=== PATIENT | female | born 1985 | race Caucasian/White ===

== ENCOUNTER 2017-10-29 18:30 | Emergency (ER) | payer BC ==
[2017-10-29 18:50] VITALS: BP 101/69
[2017-10-29] MEDS ORDERED: Sodium Chloride 0.9% 1,000 ML IV ONE (18:58)
[2017-10-29] MEDS ORDERED: Ondansetron 4 MG/2 ML SDV IVPUSH ONE ×2 (18:58→20:04)
--- NOTE | 2017-10-29 19:16 | EDM.PDOC ---
ED HPI GENERAL MEDICAL PROBLEM - General Chief Complaint: Gastrointestinal Problem Stated Complaint: vomiting Time Seen by Provider: 10/29/17 18:54 Source of Information: Reports: Patient, Family () History Limitations: Reports: No Limitations - History of Present Illness INITIAL COMMENTS - FREE TEXT/NARRATIVE: The patient states that she developed nausea and repeated emesis around 21:30 last night. She denies associated fever, constipation, diarrhea, or dysuria. She reports decreased urine output today. She reports feeling lightheaded and has an associated headache and myalgias. She states that she tried some Pepto- Bismol this morning, but vomited it up. She has been able to keep a small amount of Powerade down. She states that both of her sons had similar symptoms - her one son developed it 2 nights ago, her other son last night. Both resolved by the following morning, however, the patient's symptoms have persisted. 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 The patient denies eating any spoiled food within the last few days. No recent antibiotics. No recent travel. No prior similar symptoms. The patient's PCP is Dr. Valdivia. Abdomen Pain Score (Numeric/FACES): 6 - Related Data Allergies Allergy/AdvReac Type Severity Reaction Status Date / Time sumatriptan [From Imitrex] AdvReac Headache Verified 12/11/15 08:08 sumatriptan succinate AdvReac Headache Verified 12/11/15 08:08 [From Imitrex] Home Meds: Home Meds DULoxetine [Cymbalta] 60 mg PO BEDTIME 10/29/17 [History] Doxepin [SINEquan] 10 mg PO DAILY 10/29/17 [History] Ondansetron [Zofran ODT] 1 tab PO Q8H PRN #10 tab.dis 10/29/17 [Rx] Past Medical History [employer] History: Reports: Spontaneous Neurological History: Reports: Headaches, Chronic Psychiatric History: Reports: Anxiety, Depression, Other (See Below) (Irritable bowel syndrome/fibromyalgia/chronic fatigue) - Past Surgical History HEENT Surgical History: Reports: Oral Surgery (Free[place] teeth extraction), Tonsillectomy Female Surgical History: Reports: Other (See Below) (Exploratory laparoscopy) Endocrine Surgical History: Reports: None Musculoskeletal Surgical History: Reports: None Dermatological Surgical History: Reports: None Social & Family History - Family History Family Medical History: Noncontributory - Tobacco Use Smoking Status *Q: Never Smoker Second Hand Smoke Exposure: No - Caffeine Use Caffeine Use: Reports: Soda - Alcohol Use Alcohol Use History: Yes Days Per Week of Alcohol Use: 0 Alcohol Use Frequency: Rarely - Recreational Drug Use Recreational Drug Use: No - Living Situation & Occupation Living situation: Reports: , with Spouse, with Family (2 sons) 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 ED EXAM, GI/ABD - Physical Exam Exam: See Below Exam Limited By: No Limitations General Appearance: Alert, WD/WN, No Apparent Distress Eyes: Bilateral: Normal Appearance, EOMI Ears: Normal External Exam, Hearing Grossly Normal Nose: Normal Inspection, No Blood Throat/Mouth: Normal Inspection, Normal Lips, Normal Voice, No Airway Compromise Head: Atraumatic, Normocephalic Neck: Normal Inspection, Full Range of Motion Respiratory/Chest: No Respiratory Distress, Lungs Clear, Normal Breath Sounds, No Accessory Muscle Use Cardiovascular: Normal Peripheral Pulses, Regular Rate, Rhythm, No Edema, No Gallop, No JVD, No Murmur, No Rub GI/Abdominal Exam: Normal Bowel Sounds, Soft, No Organomegaly, No Distention, No Abnormal Bruit, No Mass, Tender (Mild, primarily to the rectus abdominous musculature) (Female) Exam: Deferred Rectal (Female) Exam: Deferred Back Exam: Normal Inspection, Full Range of Motion, Paraspinal Tenderness. No: CVA Tenderness (L), CVA Tenderness (R) Extremities: Normal Inspection, Normal Range of Motion, No Pedal Edema, Normal Capillary Refill Neurological: Alert, Oriented, Normal Cognition, No Motor/Sensory Deficits Psychiatric: Normal Affect Skin Exam: Warm, Dry, Intact, Normal Color, No Rash Course - Vital Signs Last Recorded V/S: Last Vital Signs Temp 37.2 C 10/29/17 18:49 Pulse 97 10/29/17 18:49 Resp 20 10/29/17 18:49 BP 101/69 10/29/17 18:49 Pulse Ox 98 10/29/17 18:49 Orthostatic Blood Pressure [ 104/68 Standing] Orthostatic Blood Pressure [ 103/77 Sitting] Orthostatic Blood Pressure [ 103/78 Supine] - Orders/Labs/Meds Orders: Active Orders 24 hr Category Date Time Status Orthostatic Vital Signs [RC] STAT Care 10/29/17 18:57 Active Orthostatic Vital Signs [RC] STAT Care 10/29/17 19:34 Active HCG QUALITATIVE,URINE [URCHEM] Stat Lab 10/29/17 19:09 Ordered UA W/MICROSCOPIC [URIN] Stat Lab 10/29/17 19:20 Ordered Labs: Laboratory Tests 10/29/17 10/29/17 10/29/17 Range/Units 19:09 19:10 19:10 WBC 7.53 (3.98-10.04) K/mm3 RBC 4.81 (3.98-5.22) M/mm3 Hgb 14.3 (11.2-15.7) gm/L Hct 42.5 (34.1-44.9) % MCV 88.4 (79.4-94.8) fl MCH 29.7 (25.6-32.2) pg MCHC 33.6 (32.2-35.5) g/dl RDW Std Deviation 44.4 (36.4-46.3) fL Plt Count 185 (182-369) K/mm3 MPV 10.4 (9.4-12.3) fl Neutrophils % (Manual) 93 H (40-60) % Band Neutrophils % 2 (0-10) % Lymphocytes % (Manual) 4 L (20-40) % Atypical Lymphs % 0 % Monocytes % (Manual) 1 L (2-10) % Eosinophils % (Manual) 0 L (0.7-5.8) % Basophils % (Manual) 0 L (0.1-1.2) Platelet Estimate Adequate Plt Morphology Comment Normal RBC Morph Comment Normal Sodium 136 (136-145) mEq/L Potassium 3.3 L (3.5-5.1) mEq/L Chloride 103 (98-107) mEq/L Carbon Dioxide 22 (21-32) mEq/L Anion Gap 14.3 (5-15) BUN 11 (7-18) mg/dL Creatinine 0.7 (0.55-1.02) mg/dL Est Cr Clr Drug Dosing 135.61 mL/min Estimated GFR (MDRD) > 60 (>60) mL/min BUN/Creatinine Ratio 15.7 (14-18) Glucose 107 H (74-106) mg/dL Calcium 9.0 (8.5-10.1) mg/dL Magnesium 1.6 L (1.8-2.4) mg/dl Total Bilirubin 0.6 (0.2-1.0) mg/dL AST 14 L (15-37) U/L ALT 22 (14-59) U/L Alkaline Phosphatase 49 (46-116) U/L Total Protein 6.8 (6.4-8.2) g/dl Albumin 3.8 (3.4-5.0) g/dl Globulin 3.0 gm/dL Albumin/Globulin Ratio 1.3 (1-2) Urine Color (Yellow) Urine Appearance (Clear) Urine pH (5.0-8.0) Ur Specific [place] (1.005-1.030) Urine Protein (Negative) Urine Glucose (UA) (Negative) Urine Ketones (Negative) Urine Occult Blood (Negative) Urine Nitrite (Negative) Urine Bilirubin (Negative) Urine Urobilinogen (0.2-1.0) Ur Leukocyte Esterase (Negative) Urine RBC (0-5) /hpf Urine WBC (0-5) /hpf Ur Epithelial Cells (0-5) /hpf Urine Bacteria (FEW) /hpf Urine Mucus (FEW) /hpf Urine HCG, Qual Negative (NEGATIVE) 10/29/17 Range/Units 19:20 WBC (3.98-10.04) K/mm3 RBC (3.98-5.22) M/mm3 Hgb (11.2-15.7) gm/L Hct (34.1-44.9) % MCV (79.4-94.8) fl MCH (25.6-32.2) pg MCHC (32.2-35.5) g/dl RDW Std Deviation (36.4-46.3) fL Plt Count (182-369) K/mm3 MPV (9.4-12.3) fl Neutrophils % (Manual) (40-60) % Band Neutrophils % (0-10) % Lymphocytes % (Manual) (20-40) % Atypical Lymphs % % Monocytes % (Manual) (2-10) % Eosinophils % (Manual) (0.7-5.8) % Basophils % (Manual) (0.1-1.2) Platelet Estimate Plt Morphology Comment RBC Morph Comment Sodium (136-145) mEq/L Potassium (3.5-5.1) mEq/L Chloride (98-107) mEq/L Carbon Dioxide (21-32) mEq/L Anion Gap (5-15) BUN (7-18) mg/dL Creatinine (0.55-1.02) mg/dL Est Cr Clr Drug Dosing mL/min Estimated GFR (MDRD) (>60) mL/min BUN/Creatinine Ratio (14-18) Glucose (74-106) mg/dL Calcium (8.5-10.1) mg/dL Magnesium (1.8-2.4) mg/dl Total Bilirubin (0.2-1.0) mg/dL AST (15-37) U/L ALT (14-59) U/L Alkaline Phosphatase (46-116) U/L Total Protein (6.4-8.2) g/dl Albumin (3.4-5.0) g/dl Globulin gm/dL Albumin/Globulin Ratio (1-2) Urine Color Yellow (Yellow) Urine Appearance Clear (Clear) Urine pH 6.0 (5.0-8.0) Ur Specific [place] > or = 1.030 (1.005-1.030) Urine Protein 1+ H (Negative) Urine Glucose (UA) Negative (Negative) Urine Ketones 3+ H (Negative) Urine Occult Blood Negative (Negative) Urine Nitrite Negative (Negative) Urine Bilirubin Negative (Negative) Urine Urobilinogen 0.2 (0.2-1.0) Ur Leukocyte Esterase Negative (Negative) Urine RBC Not seen (0-5) /hpf Urine WBC Not seen (0-5) /hpf Ur Epithelial Cells 0-5 (0-5) /hpf Urine Bacteria Not seen (FEW) /hpf Urine Mucus Few (FEW) /hpf Urine HCG, Qual (NEGATIVE) Meds: Medications Discontinued Medications Generic Name Dose Route Start Last Admin Trade Name Freq PRN Reason Stop Dose Admin Sodium Chloride 1,000 mls @ 999 mls/hr 10/29/17 18:58 10/29/17 19:12 Normal Saline IV 10/29/17 19:58 999 mls/hr ONETIME ONE Administration Magnesium Sulfate 2 gm/ Premix 50 mls @ 50 mls/hr 10/29/17 20:02 10/29/17 20: 08 IV 10/29/17 21:01 50 mls/hr ONETIME ONE Administration Sodium Chloride 500 mls @ 999 mls/hr 10/29/17 21:15 10/29/17 21:22 Normal Saline IV 10/29/17 21:45 999 mls/hr .BOLUS ONE Administration Ondansetron HCl 4 mg 10/29/17 18:58 10/29/17 19:12 Zofran IVPUSH 10/29/17 18:59 4 mg ONETIME ONE Administration Ondansetron HCl 4 mg 10/29/17 20:04 10/29/17 20:11 Zofran IVPUSH 10/29/17 20:05 4 mg ONETIME ONE Administration Potassium Chloride 20 meq 10/29/17 21:16 10/29/17 21:22 Klor-Con M20 PO 10/29/17 21:17 20 meq ONETIME ONE Administration - Re-Assessments/Exams Free Text/Narrative Re-Assessment/Exam: 10/29/17 20:02 The patient's magnesium level returned mildly depressed at 1.6, with a potassium level mildly depressed at 3.3. The remainder of her CBC, CMP, urinalysis, and urine tests are otherwise unremarkable. I have ordered a 2 g Mg-rider, after which we can give the patient some supplemental oral potassium. 10/29/17 20:04 The patient reports significant improvement in her nausea, although it has not completely resolved. I have ordered an additional 4 mg Zofran. 10/29/17 21:16 The patient's 1 L NS and Mg-rider of both finished infusing, and the patient feels fine, however, repeat orthostatics still meet criterion. I have ordered 500 mL bolus of IV fluid and 20 mEq oral KCl, after which the patient should be fit for discharge home. 10/29/17 22:34 The patient states that she feels well. I will discharge her home with an e- prescription for Zofran. Departure - Departure Time of Disposition: 22:34 Disposition: Home, Self-Care 01 Condition: Good Clinical Impression: Nausea & vomiting - Discharge Information Referrals: Lucia Byrd MD [Primary Care Provider] - Forms: ED Department Discharge Additional Instructions: You were seen in the emergency room for nausea and vomiting since the evening of 10/28/2017. Workup in the ER included blood work, a urinalysis, a urine test, and positional blood pressure checks. Your workup found that you were intravascularly dry, your magnesium level was mildly low, and your potassium level was mildly low. After IV fluid, your blood pressure numbers normalized. Your magnesium was replaced by IV, and your potassium replaced orally. A prescription for the anti-nausea medicine Zofran has been sent to the [facility] located in the [employer] [facility]. Dissolve 1 tablet on your tongue up to every 8 hours, as needed for nausea/vomiting. Stay adequately hydrated. Gatorade or Powerade are best. Eat a bland diet for the next few days, until you are feeling all better. Follow-up with your PCP, Dr. Valdivia, as needed. If any other problems, please do not hesitate to return to the ER. - My Orders Last 24 Hours: My Active Orders 10/29/17 18:57 Orthostatic Vital Signs [RC] STAT 10/29/17 19:09 HCG QUALITATIVE,URINE [URCHEM] Stat 10/29/17 19:20 UA W/MICROSCOPIC [URIN] Stat 10/29/17 19:34 Orthostatic Vital Signs [RC] STAT - Assessment/Plan Last 24 Hours: My Active Orders 10/29/17 18:57 Orthostatic Vital Signs [RC] STAT 10/29/17 19:09 HCG QUALITATIVE,URINE [URCHEM] Stat 10/29/17 19:20 UA W/MICROSCOPIC [URIN] Stat 10/29/17 19:34 Orthostatic Vital Signs [RC] STAT
[2017-10-29] MEDS ORDERED: Magnesium Sulfate/Water 2 GM in Premix Bag 1 BAG IV ONE (20:02)
[2017-10-29] MEDS ORDERED: Sodium Chloride 0.9% 500 ML IV ONE (21:15)
[2017-10-29] MEDS ORDERED: Potassium Chloride 20 MEQ Tab.ER PO ONE (21:16)
== END 2017-10-29 22:45 | disposition home or self-care (01) ==
LOC: JD.ED 18:30
DX: R11.2 Nausea with vomiting, unspecified (principal); Z88.8 Allergy status to other drugs, medicaments and biological substances
CPT/HCPCS: 36415; 80053; 81001; 81025; 83735; 85025; 96361; 96365; 96375; 96376; 99284; A9270; J2405; J7040; J3475

== ENCOUNTER 2020-09-26 19:44 | Emergency (ER) | payer BC ==
[2020-09-26 20:13] VITALS: BP 136/87; PULSE 102
--- NOTE | 2020-09-26 20:14 | EDM.PDOC ---
ED HPI GENERAL MEDICAL PROBLEM - General Chief Complaint: Abdominal Pain Stated Complaint: ABDOMINAL PAIN Time Seen by Provider: 09/26/20 20:13 Source of Information: Reports: Patient History Limitations: Reports: No Limitations - History of Present Illness INITIAL COMMENTS - FREE TEXT/NARRATIVE: 35-year-old female presents to the ED due to sudden onset of severe right lower quadrant abdominal pain that made her stop her activities and nearly passed out due to the pain,. Patient has had diarrhea x1 approximately 2 hours ago. Large volume yellow fluid loss diarrhea stool. No blood noted. She has been nauseated good portion of the day and did vomit once this morning. No fever no chills. No possibility of as she has had a total abdominal hysterectomy done for endometriosis. Both ovaries were left in place. Patient does have pain rating into the perineum and suprapubic area of her pelvis. She states the pain is making her nauseated at this point time but it is eased up compared to when it started over an hour ago. She has had no other abdominal surgery. Patient has a history of irritable bowel syndrome. She is on multiple medications that could cause constipation. Onset: Today, Sudden Onset Date: 09/26/20 Onset Time: 19:00 Duration: Minutes:, Constant (Pain is slowly let up a little bit. Pain is still constant right lower quadrant and right inguinal area.), Improving Location: Reports: Abdomen (Lower quadrant abdominal pain) Quality: Reports: Ache, Other (Deep aching pain right lower quadrant of the abdomen) Severity: Moderate (Was attended to 10. Now it is down to about a 7 out of 10.) Improves with: Reports: Rest Worsens with: Reports: Other (Worse with walking movement and) Context: Denies: Activity ( deep breathing.), Lifting, Sick Contact, Trauma, Other Associated Symptoms: Reports: Diaphoresis. Denies: Confusion, Chest Pain, Cough, cough w sputum, Fever/Chills, Headaches (Covered in sweat due to the severity of the pain when it first started.), Loss of Appetite, Malaise, Nausea/Vomiting, Rash, Seizure, Shortness of Breath, Syncope, Weakness Treatments SWITCHMAN: Reports: Other (see below) Right Abdomen Pain Score (Numeric/FACES): 4 - Related Data Allergies Allergy/AdvReac Type Severity Reaction Status Date / Time gluten Allergy Stomach Verified 03/25/21 22:08 Upset sumatriptan [From Imitrex] AdvReac Headache Verified 09/26/20 22:08 sumatriptan succinate AdvReac Headache Verified 09/26/20 22:08 [From Imitrex] Home Meds: Home Meds Doxepin [SINEquan] 10 - 20 mg PO BEDTIME PRN 10/29/17 [History] Azelastine/Fluticasone [Dymista Nasal [place]] 1 spray NASBOTH ASDIRECTED PRN 01/25/18 [History] Celecoxib 200 mg PO DAILY PRN 01/25/18 [History] DULoxetine HCl [Duloxetine HCl] 30 mg PO DAILY 01/25/18 [History] EPINEPHrine [Epipen] 1 dose IM ASDIRECTED 01/25/18 [History] Hyoscyamine [Hyomax-SL] 0.125 mg PO QID 01/25/18 [History] Linaclotide [Linzess] 290 mcg PO DAILY 01/25/18 [History] Modafinil 100 mg PO DAILY 01/25/18 [History] Olopatadine [Patanol 0.1% Ophth Soln] 1 drop EYEBOTH ASDIRECTED 01/25/18 [History] hydrOXYzine HCL [hydrOXYzine] 10 - 20 mg PO QID PRN 01/25/18 [History] Acetaminophen/oxyCODONE [Percocet 325-5 MG] 2 tab PO Q4H PRN #20 tablet 01/27/18 [Rx] Past Medical History HEENT History: Reports: Other (See Below) (Dry eye syndrome.) Cardiovascular History: Reports: Other (See Below) (pt states no palpitations lately) Other Cardiovascular History: palpitations Respiratory History: Reports: Asthma (pt states mostly exercised induced or if gets sick, has not needed inhalers for a long time), SOB Other Respiratory History: Not current bronchitis Gastrointestinal History: Reports: Celiac Disease, Chronic Constipation, Gastritis, Irritable Bowel Syndrome Other Gastrointestinal History: IBS w/ chronic ~q3d BMs constipation Genitourinary History: Reports: None [employer] History: Reports: , Spontaneous , Other (See Below) (LMP 2 weeks ago, awaiting test) Other [employer] History: pelvic pain, abnormal uterine bleeding Musculoskeletal History: Reports: Back Pain, Chronic, Fibromyalgia Neurological History: Reports: Migraines (headache today, rates a 3) Psychiatric History: Reports: Anxiety, Depression, Other (See Below) Other Psychiatric History: social phobia, claustrophobia Endocrine/Metabolic History: Reports: None Hematologic History: Reports: None Other Hematologic History: In Immunologic History: Reports: None Oncologic (Cancer) History: Reports: None Dermatologic History: Reports: None - Past Surgical History Head Surgeries/Procedures: Reports: None HEENT Surgical History: Reports: Naso-Sinus Surgery, Tonsillectomy Cardiovascular Surgical History: Reports: None Respiratory Surgical History: Reports: None GI Surgical History: Reports: Colonoscopy, EGD Female Surgical History: Reports: None Male Surgical History: Reports: None Endocrine Surgical History: Reports: None, Parathyroidectomy, Other (See Below) Other Endocrine Surgeries/Procedures: thyroid surgery Neurological Surgical History: Reports: None Musculoskeletal Surgical History: Reports: None Oncologic Surgical History: Reports: None Dermatological Surgical History: Reports: None Social & Family History - Family History Family Medical History: No Pertinent Family History - Caffeine Use Caffeine Use: Reports: None, Soda - Living Situation & Occupation Living situation: Reports: , with Spouse, with Family (2 sons) 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 tonight.), Weight Loss HEENT: Reports: No Symptoms Respiratory: Reports: No Symptoms Cardiovascular: Reports: No Symptoms Endocrine: Reports: No Symptoms GI/Abdominal: Reports: Abdominal Pain, Diarrhea (Hard volume yellow diarrhea stool about an hour ago.), Decreased Appetite (Did once earlier today.), Nausea (See history of present illness.), Vomiting : Reports: No Symptoms Musculoskeletal: Reports: No Symptoms Skin: Reports: No Symptoms Neurological: Reports: No Symptoms Psychiatric: Reports: No Symptoms Hematologic/Lymphatic: Reports: No Symptoms Immunologic: Reports: No Symptoms ED EXAM, GI/ABD - Physical Exam Exam: See Below Exam Limited By: No Limitations General Appearance: Alert, WD/WN, Mild Distress, Other (Temperature is 36.6 degrees. Heart rate 102 respiratory 16 with O2 sats of 97% room air BP 136/87.) Eyes: Bilateral: Normal Appearance (No scleral icterus or blepharal pallor.) Neck: Normal Inspection, Supple, Non-Tender, Full Range of Motion. No: Lymphadenopathy (L), Lymphadenopathy (R) Respiratory/Chest: No Respiratory Distress, Lungs Clear, Normal Breath Sounds, No Accessory Muscle Use, Chest Non-Tender Cardiovascular: Normal Peripheral Pulses, No Edema, No Gallop, No Rub, Tachycardia (Tachycardia 105/min.) GI/Abdominal Exam: No Organomegaly, No Abnormal Bruit, No Mass, Pelvis Stable, Distended (All sounds are very quiet sounds in all 4 quadrants. She feels bloated and distended. She has mildly tympany to percussion particular across the lower abdomen.), Guarding, Tender (Cornelius suprapubically and right lower quadrant of the abdomen with guarding), Abnormal Bowel Sounds, Other (She has had evidence of a belly ring supraumbilical. There is evidence of laparoscopic surgery with a surgical wound inferior aspect of the umbilicus.). No: Rigid, Rebound Back Exam: Normal Inspection, Full Range of Motion. No: CVA Tenderness (L), CVA Tenderness (R) Extremities: Normal Inspection, Normal Range of Motion, Non-Tender, No Pedal Edema Neurological: Alert, CN II-XII Intact, Normal Cognition, Normal Gait Skin Exam: Warm, Dry, Intact, Normal Color, No Rash Course - Vital Signs Last Recorded V/S: Last Vital Signs Temp 36.6 C 09/26/20 20:11 Pulse 102 H 09/26/20 20:11 Resp 16 09/26/20 20:11 BP 136/87 09/26/20 20:11 Pulse Ox 97 09/26/20 20:11 - Orders/Labs/Meds Labs: Laboratory Tests 09/26/20 09/26/20 09/26/20 Range/Units 20:30 20:45 20:45 WBC 13.31 H (3.98-10.04) K/mm3 RBC 4.94 (3.98-5.22) M/mm3 Hgb 15.2 D (11.2-15.7) gm/dl Hct 46.9 H (34.1-44.9) % MCV 94.9 H (79.4-94.8) fl MCH 30.8 (25.6-32.2) pg MCHC 32.4 (32.2-35.5) g/dl RDW Std Deviation 45.6 (36.4-46.3) fL Plt Count 278 D (182-369) K/mm3 MPV 10.4 (9.4-12.3) fl Neutrophils % (Manual) 80 H (40-60) % Band Neutrophils % 0 (0-10) % Lymphocytes % (Manual) 15 L (20-40) % Atypical Lymphs % 0 % Monocytes % (Manual) 5 (2-10) % Eosinophils % (Manual) 0 L (0.7-5.8) % Basophils % (Manual) 0 L (0.1-1.2) Platelet Estimate Adequate RBC Morph Comment Normal Sodium 143 (136-145) mEq/L Potassium 3.8 (3.5-5.1) mEq/L Chloride 105 (98-107) mEq/L Carbon Dioxide 27 (21-32) mEq/L Anion Gap 14.8 (5-15) BUN 10 (7-18) mg/dL Creatinine 0.7 (0.55-1.02) mg/dL Est Cr Clr Drug Dosing 131.91 mL/min Estimated GFR (MDRD) > 60 (>60) mL/min BUN/Creatinine Ratio 14.3 (14-18) Glucose 104 (74-106) mg/dL Calcium 9.7 (8.5-10.1) mg/dL Magnesium 2.0 (1.8-2.4) mg/dl Total Bilirubin 0.2 (0.2-1.0) mg/dL AST 18 (15-37) U/L ALT 25 (14-59) U/L Alkaline Phosphatase 55 (46-116) U/L C-Reactive Protein < 0.2 (<1.0) mg/dL Total Protein 7.7 (6.4-8.2) g/dl Albumin 4.3 (3.4-5.0) g/dl Globulin 3.4 gm/dL Albumin/Globulin Ratio 1.3 (1-2) Lipase (73-393) U/L Urine Color Yellow (Yellow) Urine Appearance Clear (Clear) Urine pH 6.0 (5.0-8.0) Ur Specific [place] 1.025 (1.005-1.030) Urine Protein Negative (Negative) Urine Glucose (UA) Negative (Negative) Urine Ketones Trace H (Negative) Urine Occult Blood Trace-lysed H (Negative) Urine Nitrite Negative (Negative) Urine Bilirubin Negative (Negative) Urine Urobilinogen 0.2 (0.2-1.0) Ur Leukocyte Esterase Negative (Negative) Urine RBC 0-5 (0-5) /hpf Urine WBC 0-5 (0-5) /hpf Ur Squamous Epith Cells 0-5 (0-5) /hpf Calcium Oxalate Crystal Few H (NONE) Urine Bacteria Few (FEW) /hpf Urine Mucus Few (FEW) /hpf 09/26/20 Range/Units 20:45 WBC (3.98-10.04) K/mm3 RBC (3.98-5.22) M/mm3 Hgb (11.2-15.7) gm/dl Hct (34.1-44.9) % MCV (79.4-94.8) fl MCH (25.6-32.2) pg MCHC (32.2-35.5) g/dl RDW Std Deviation (36.4-46.3) fL Plt Count (182-369) K/mm3 MPV (9.4-12.3) fl Neutrophils % (Manual) (40-60) % Band Neutrophils % (0-10) % Lymphocytes % (Manual) (20-40) % Atypical Lymphs % % Monocytes % (Manual) (2-10) % Eosinophils % (Manual) (0.7-5.8) % Basophils % (Manual) (0.1-1.2) Platelet Estimate RBC Morph Comment Sodium (136-145) mEq/L Potassium (3.5-5.1) mEq/L Chloride (98-107) mEq/L Carbon Dioxide (21-32) mEq/L Anion Gap (5-15) BUN (7-18) mg/dL Creatinine (0.55-1.02) mg/dL Est Cr Clr Drug Dosing mL/min Estimated GFR (MDRD) (>60) mL/min BUN/Creatinine Ratio (14-18) Glucose (74-106) mg/dL Calcium (8.5-10.1) mg/dL Magnesium (1.8-2.4) mg/dl Total Bilirubin (0.2-1.0) mg/dL AST (15-37) U/L ALT (14-59) U/L Alkaline Phosphatase (46-116) U/L C-Reactive Protein (<1.0) mg/dL Total Protein (6.4-8.2) g/dl Albumin (3.4-5.0) g/dl Globulin gm/dL Albumin/Globulin Ratio (1-2) Lipase 172 (73-393) U/L Urine Color (Yellow) Urine Appearance (Clear) Urine pH (5.0-8.0) Ur Specific [place] (1.005-1.030) Urine Protein (Negative) Urine Glucose (UA) (Negative) Urine Ketones (Negative) Urine Occult Blood (Negative) Urine Nitrite (Negative) Urine Bilirubin (Negative) Urine Urobilinogen (0.2-1.0) Ur Leukocyte Esterase (Negative) Urine RBC (0-5) /hpf Urine WBC (0-5) /hpf Ur Squamous Epith Cells (0-5) /hpf Calcium Oxalate Crystal (NONE) Urine Bacteria (FEW) /hpf Urine Mucus (FEW) /hpf Meds: Medications Discontinued Medications Generic Name Dose Route Start Last Admin Trade Name Freq PRN Reason Stop Dose Admin Hydromorphone HCl 0.5 mg 09/26/20 20:20 09/26/20 20:39 Hydromorphone 0.5 Mg/0.5 Ml Syringe IVPUSH 09/26/20 20:21 0.5 mg ONETIME ONE Administration Dextrose/Sodium Chloride 1,000 mls @ 500 mls/hr 09/26/20 20:30 09/26/20 20:38 Dextrose 5%-Normal Saline IV 500 mls/hr ASDIRECTED TITI Administration Iopamidol 100 ml 09/26/20 20:45 Iopamidol 612 Mg/Ml 100 Ml Bottle IVPUSH 09/26/20 20:46 ONETIME ONE Ketorolac Tromethamine 30 mg 09/26/20 21:45 09/26/20 21:57 Ketorolac 30 Mg/Ml Sdv IVPUSH 30 mg ONETIME TITI Administration Ondansetron HCl 4 mg 09/26/20 20:21 09/26/20 20:38 Ondansetron 4 Mg/2 Ml Sdv IVPUSH 09/26/20 20:22 4 mg ONETIME ONE Administration Sodium Chloride 10 ml 09/26/20 20:45 Sodium Chloride 0.9% 10 Ml Syringe FLUSH ASDIRECTED TITI - Radiology Interpretation Free Text/Narrative:: 35-year-old female presents to the ED due to acute onset of severe right lower quadrant right pelvic pain rating suprapubically and down into the perineum. Patient states she not felt well most of the day with nausea. She did have a large volume loose diarrhea stool approximately an hour ago. She then developed acute onset of severe right lower quadrant abdominal pain that nearly paralyzed her. Broke out in a sweat. It has eased up a good deal since coming to the ED. Of note the patient has had a total abdominal hysterectomy due to endometr iosis 2 years ago. Both ovaries were retained. Exam reveals very quiescent bowel sounds in all 4 quadrants. She is tender to palpation suprapubically and right lower quadrant of the abdomen with guarding. Plan IV D5 normal saline at 500 mils per hour. Dilaudid 0.5 mg IV with Zofran 4 mg IV for nausea relief. CT of the abdomen be performed with IV contrast only. Certain therefore is for ovarian cyst rupture or torsion. - Re-Assessments/Exams Free Text/Narrative Re-Assessment/Exam: 09/26/20 21:20 White count is mildly elevated at 13.31 differential pending hemoglobin is 15.2 with hematocrit of 46.9. MCV slightly elevated at 494.9. Urinalysis is trace of lysed occult blood. Leukocyte esterase was negative. CT of the abdomen and pelvis has been completed with IV contrast. No free air is identified. It does reveal a mild amount of air in the distal esophagus. Visualized portions of the distal lungs are clear. Liver appears homogeneous with no intraductal dilatation. Gallbladder is present with no obvious calcified gallstones. Pancreas appears normal. Stomach is filled with food. Kidneys appear normal with no ureteric obstruction. Adrenal glands appear normal. There is a large amount of air distending the entire large bowel. Small amount of stool present in the cecum. No evidence of acute appendicitis. There appears to be some fluid-filled portions of the distal small bowel in the pelvis. There is no sign of bowel obstruction. No sign of free fluid in the pelvis. I will await the CT over read by radiology services. 09/26/20 21:27 CT scan over read by is now available. He agrees liver continues no focal parenchymal abnormalities. Spleen appears normal. Adrenal glands show no nodules. Pancreas shows no discrete abnormality. Gallbladder contains no calcified gallstones. Kidneys show symmetric and contrast enhancement. Delayed images show contrast excretion from both kidneys into a nondilated ureters as well as into the urinary bladder. Abdominal aorta shows that no aneurysm. No retroperitoneal adenopathy is seen. No mesenteric abnormalities are seen. Appendix is seen which is normal in size. Within the pelvis there appears to be prior hysterectomy. There is a cystic area being seen within the left side of the pelvis which appears to be somewhat complicated and measures 5.1 cm. Free fluid is also noted within the pelvis. The right adnexa appears to be within normal limits. Scattered areas of fluid are seen within the small bowel the small bowel does not appear to be dilated colon shows mild amount of stool and air bone window settings were reviewed which showed no acute osseous findings for the patient's age. Patient is a 5.1 cm complicated cystic area within the left pelvis free fluid is also noted within the pelvis which is slightly more than expected for physiologic and likely from cystic mass within the left pelvis. 09/26/20 21:35 still having some mild pelvic pain but she states much better than it was. It appears that most likely she had a right ovarian cyst that has ruptured with free fluid in the pelvis as a cause of her pain since her pain was all in the right side and suprapubic. Complicated left ovarian cyst will need repeat ultrasound in 6 weeks time. I will give her Toradol 30 mg IV for further pain relief as she really does not like to take narcotics. I will give her [facility] prescription for Percocet x10 tablets that she can take home and use 1 every 4 hours as needed for pain as needed. Advised ovarian cyst pain should resolve gradually over the next 3 to 5 days. Departure - Departure Time of Disposition: 21:40 Disposition: Home, Self-Care 01 Condition: Fair Clinical Impression: Rupture of cyst of right ovary, Pelvic pain Diarrhea Qualifiers: Diarrhea type: unspecified type Qualified Code(s): R19.7 - Diarrhea, unspecified - Discharge Information *PRESCRIPTION DRUG MONITORING PROGRAM REVIEWED*: Not Applicable *COPY OF PRESCRIPTION DRUG MONITORING REPORT IN PATIENT TOÑO: Not Applicable Instructions: Pelvic Pain, Female, [id number], Ovarian Cyst, [id number] Referrals: Lucia Byrd MD [Primary Care Provider] - Forms: ED Department Discharge Additional Instructions: Evaluation in the emergency room tonight in regards to development of one large volume diarrhea stool earlier this evening. Intermittent nausea throughout the day. Sudden onset of severe right lower quadrant suprapubic abdominal pain around 1900 hrs. tonight. Tenderness appreciated on examination in the right lower quadrant and towards the pelvis. History of previous total abdominal hysterectomy due to endometriosis. CT scan of the abdomen was therefore performed with IV contrast only. He does reveal a large amount of air throughou t the large bowel with scattered stool. There is also a fair amount of fluid within loops of the last part of the small bowel down in the pelvis meaning you are likely going to get further diarrhea. There is a 5.1 cm cyst on the left ovary which should be we evaluated by ultrasound in about 6 to 8 weeks time by your [employer]. There was no obvious enlarged right ovarian cyst and it is suspected that the right ovarian cyst has ruptured with free fluid in the pelvis causing current pain syndrome. Treatment is time to heal. Usually your body will reabsorb the fluid discharge from the ruptured ovary over period of 3 to 5 days. Activity as tolerated. Continue Motrin 600 mg every 6 hours if needed for pain relief and Percocet tabs 1 tablet every 4-6 hours as necessary for pain relief if needed. You were given an injection of Toradol 30 mg IV before discharge from the hospital tonight which hopefully will get you through the night. Return to medical care if pain worsens instead of gradually improves over the next 48 to 72 hours. Sepsis Event Note (ED) - Evaluation Sepsis Screening Result: No Definite Risk - Focused Exam Vital Signs: Vital Signs Temp Pulse Resp BP Pulse Ox 09/26/20 20:11 36.6 C 102 H 16 136/87 97
[2020-09-26] MEDS ORDERED: HYDROmorphone 0.5 MG/0.5 ML Syringe IVPUSH ONE (20:20)
[2020-09-26] MEDS ORDERED: Ondansetron 4 MG/2 ML SDV IVPUSH ONE (20:21)
[2020-09-26] MEDS ORDERED: Dextrose 5%-0.9% NaCl 1,000 ML IV SCH (20:30)
[2020-09-26] MEDS ORDERED: Iopamidol 612 MG/ML 100 ML Bottle IVPUSH ONE (20:45)
[2020-09-26] MEDS ORDERED: Sodium Chloride 0.9% 10 ML Syringe FLUSH SCH (20:45)
--- NOTE | 2020-09-26 21:26 | CT ---
CT abdomen and pelvis Technique: Multiple axial sections were obtained from above the dome of the diaphragm inferiorly through the pubic symphysis. Intravenous contrast was utilized. Delayed images were also obtained through the abdomen and pelvis. Comparison: Previous MRI abdomen exam of 01/14/12. Findings: Visualized lung bases shows nothing acute. Liver contains no focal parenchymal abnormality. Spleen appears within normal limits. Adrenal glands show no nodule. Pancreas shows no discrete abnormality. Gallbladder contains no calcified gallstones. Kidneys show symmetric contrast enhancement. Delayed images show contrast excretion from both kidneys into nondilated ureters as well as into the bladder. Abdominal aorta shows no aneurysm. No retroperitoneal adenopathy is seen. No mesenteric abnormalities are seen. Appendix is seen which is normal in size. Within the pelvis there appears to be prior hysterectomy. There is a cystic area being seen within the left side of the pelvis which appears to be somewhat complicated and measures 5.1 cm. Free fluid is also noted within the pelvis. Right adnexa appears within normal limits. Scattered areas of fluid are seen within the small bowel. The small bowel does not appear to be dilated. Colon shows mild amount of stool and air. Bone window settings were reviewed which show no acute osseous findings for the patient's age. Impression: 1. 5.1 cm complicated cystic area within the left pelvis. Free fluid is also noted within the pelvis which is slightly more than expected for physiologic and likely from the cystic mass within the left pelvis. 2. No other acute abnormality is appreciated on CT study of the abdomen and pelvis. Diagnostic code #3
[2020-09-26] MEDS ORDERED: Ketorolac 30 MG/ML SDV IVPUSH SCH (21:45)
== END 2020-09-26 22:06 | disposition home or self-care (01) ==
LOC: JD.ED 19:44
DX: N83.201 Unspecified ovarian cyst, right side (principal); R19.7 Diarrhea, unspecified; D72.829 Elevated white blood cell count, unspecified; J45.909 Unspecified asthma, uncomplicated; Z91.018 Allergy to other foods; Z88.8 Allergy status to other drugs, medicaments and biological substances; Z79.899 Other long term (current) drug therapy
CPT/HCPCS: 36415; 74177; 80053; 81001; 83690; 83735; 85007; 85027; 86140; 96374; 96375; 99284; J1170; J1885; J2405; J7042